=== PATIENT | female | born 1965 | race Two or more races ===

== ENCOUNTER 2024-11-30 00:46 | Emergency (ER) | payer OTHER ==
[~2024-11-30] VITALS: Ht 165.1 cm; Wt 131.1 kg
[2024-11-30] MEDS ORDERED: LEVOTHYROXINE25 MCG (01:02)
[2024-11-30] MEDS ORDERED: METFORMIN HCL1000 M2 (01:02)
[2024-11-30] MEDS ORDERED: BACITRACIN-NEOMYCIN-POLYMYXIN 0.9 GM PACKET TOP ONE (01:10)
[2024-11-30] MEDS ORDERED: KETOROLAC TROMETHAMINE 60 MG VIAL IM ONE ×2 (02:30→02:50)
[2024-11-30] MEDS ORDERED: ORPHENADRINE CITRATE 30 MG/ML AMPUL IM ONE (02:30)
[2024-11-30] MEDS ORDERED: ORPHENADRINE CITRATE 30 MG/ML AMPUL ONE (02:49)
[2024-11-30] MEDS ORDERED: DICLOFENAC SODI75 MG PO (02:59)
== END 2024-11-30 03:35 | disposition home or self-care (01) ==
LOC: ER 00:48
DX: M12.562 Traumatic arthropathy, left knee (principal); W18.39XA Other fall on same level, initial encounter; Y93.89 Activity, other specified; Y92.63 Factory as the place of occurrence of the external cause